=== PATIENT | male | born 1975 | race Caucasian/White ===

== ENCOUNTER → 2023-03-16 11:21 | Outpatient (CLI) | payer MEDICAID, SELFPAY ==
[2023-03-16 12:09] LABS: Basophils # 0.1 K/mm3 (0-0.2); Basophils % 0.7 % (0.1-2.0); Eosinophils # 0.3 K/mm3 (0.0-0.4); Eosinophils % 2.9 % (0.1-12.0); Hemoglobin 15.4 g/dL (14.1-18.0); Lymphocytes # 2.6 K/mm3 (0.7-4.5); Lymphocytes % 23.2 % (10-50); Mean Corpuscular HGB Conc 33.5 g/dL (31.8-35.4); Mean Corpuscular Hemoglobin 29.4 pg (27.0-31.2); Mean Corpuscular Volume 87.7 fl (80-94); Mean Platelet Volume 9.8 fl (7.4-10.4); Monocytes # 1.1 K/mm3 (0.1-1.0); Monocytes % 9.6 % (1.7-9.3); Neutrophils # 7.1 K/mm3 (1.8-7.8); Neutrophils % 63.5 % (37.0-80.0); Platelet Count 137 K/mm3 (142-424); Red Blood Count 5.24 M/mm3 (4.60-6.20); Red Cell Distribution Width 13.4 % (11.5-17.5); White Blood Count 11.2 K/mm3 (4.8-10.8)
[2023-03-16 12:16] LABS: Alanine Aminotransferase 29 U/L (12-78); Albumin Level 4.2 g/dl (3.5-5.0); Albumin/Globulin Ratio 1.6 (1.1-1.8); Alkaline Phosphatase 88 U/L (38-126); Anion Gap 14.7 mEq/L (5-15); Aspartate Amino Transferase 33 U/L (17-59); Bilirubin,Total 0.4 mg/dl (0.2-1.3); Blood Urea Nitrogen 11 mg/dl (9-20); Calcium 9.3 mg/dl (8.4-10.2); Carbon Dioxide 29 mmol/L (22.0-30.0); Chloride 102 mmol/L (98-107); Estimated Glomerular Filt Rate 79 ml/min (>60); GFR (African American) 96 ML/MIN (>60); Globulin 2.7 g/dL (1.3-3.2); Glucose 112 mg/dl (74-100); Potassium 4.7 mmoL/L (3.5-5.1); Sodium 141 mmol/L (136-145); Total Protein,Serum 6.9 g/dl (6.3-8.2)
[2023-03-17 11:55] LABS: HBsAg Screen Negative (Negative); HCV Ab Non Reactive (Non Reactive); Hep A Ab, IGM Negative (Negative); Hep B Core Ab, IgM Negative (Negative)
== END ==
PROVIDERS: PCP Family Medicine; Visit Provider Surgery
DX: K40.90 Unilateral inguinal hernia, without obstruction or gangrene, not specified as recurrent (principal)
CPT/HCPCS: 36415; 80053; 80074; 85025

== ENCOUNTER 2023-08-26 11:54 | Emergency (ER) | payer MEDICAID, SELFPAY ==
[2023-08-26 12:16] VITALS: BP 143/96; PULSE 106; RESP 20; TEMP 36.8; O2SAT 96; BMI 38.0
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
[2023-08-26 13:21] VITALS: BP 140/93; PULSE 90; RESP 16; TEMP 36.6; O2SAT 92
== END 2023-08-26 13:23 | disposition home or self-care (01) ==
PROVIDERS: Emergency Provider Student in an Organized Health Care Education/Training Program; PCP Family Medicine
DX: K40.90 Unilateral inguinal hernia, without obstruction or gangrene, not specified as recurrent (principal); M54.40 Lumbago with sciatica, unspecified side
CPT/HCPCS: 99283

== ENCOUNTER → 2023-09-01 09:00 | Outpatient (CLI) | payer MEDICAID, SELFPAY ==
--- NOTE | 2023-09-01 09:01 | CT_ITS ---
FINAL REPORT TECHNIQUE: Axial CT images of the abdomen and pelvis were obtained before and after the administration of IV contrast. This study was performed with techniques to keep radiation doses as low as reasonably achievable (ALARA). Individualized dose reduction techniques using automated exposure control or adjustment of mA and/or kV according to the patient's size were employed. CLINICAL HISTORY: LLQ pain COMPARISON: None FINDINGS: Abdomen: The lung bases are clear. The heart is normal in size. The liver has an unremarkable appearance, without evidence of mass or biliary duct dilatation. The gallbladder is collapsed with a probable stone, would recommend ultrasound confirmation.. The spleen is unremarkable. No adrenal masses present. The pancreas has an unremarkable appearance. The kidneys enhance normally, with a small left renal cyst.. The aorta is normal in caliber. There is no free fluid or adenopathy. No mass or abnormal fluid collection is seen. Pelvis: The appendix is unremarkable in appearance. The urinary bladder is unremarkable. There is a large left inguinal hernia containing fat and a nonobstructed loop of sigmoid colon with a small amount of adjacent inflammatory change. There is a right inguinal hernia with fat. There are multiple small bilateral inguinal nodes, likely reactive. There is no evidence of bowel obstruction. IMPRESSION: Large left inguinal hernia containing fat and a nonobstructed loop of sigmoid colon with a small amount of adjacent inflammatory change. There are multiple small bilateral inguinal nodes in the pelvis, likely reactive. The gallstone is somewhat collapsed with a questionable stone present, recommend ultrasound confirmation. Reviewed, Interpreted and Dictated by Otis Perera III, MD Transcribed by Melvi Devries Authenticated and [facility]
== END ==
PROVIDERS: PCP Family Medicine; Visit Provider Family Medicine
DX: R10.32 Left lower quadrant pain (principal); K46.9 Unspecified abdominal hernia without obstruction or gangrene
CPT/HCPCS: 74178; Q9967

== ENCOUNTER 2023-10-05 07:14 | Outpatient (CLI) | payer MEDICAID, SELFPAY ==
--- NOTE | 2023-10-05 07:19 | NM_ITS ---
APPROVED REPORT Exam: Nuclear Stress Test Indication: Abnormal EKG, HTN, Tobacco use Patient Location: Outpatient Stress Tech: Karol Meléndez [place] Tech:Shyann Salinas, ARRT, RT (R)(N) Ht: 5 ft 10 in Wt: 260 lbs HR: 67 bpm BP: 143/85 mmHg BSA: 2.33 m2 Rhythm: NSR TID: 1.19 BMI: 37.3 History: Abnormal EKG, HTN, Tobacco use Procedure: Patient received 0.4 mg of intravenous Lexiscan, resting heart rate 67 bpm, resting blood pressure 143/85 mmHg, with Lexiscan maximum heart rate achieved was 94 bpm which is % of the maximum predicted heart rate and blood pressure was 170/93 mmHg. With Lexiscan, patient denied any complaint of chest pain. Cardiac Stress and Resting SPECT Images: Cardiac Stress and Resting SPECT images were obtained using technetium 99m Myoview 32.4 mCi stress and 10.23 mCi at rest. Resting and stress imaging in supine and prone positions demonstrate no evidence of fixed or reversible perfusion defects. Gated imaging demonstrates normal global and regional LV systolic function. LVEF is calculated at 57%. Conclusion: No evidence of fixed or reversible perfusion defects. Gated imaging demonstrates normal global and regional LV systolic function. LVEF is calculated at 57%. Electronically signed by : Kita Zamorano MD 10/05/2023 11:16:31
[2023-10-05] MEDS: SODIUM CHLORIDE 0.9% 10ML SYR (RAD ONLY) 10 ML IV ×2 (08:51→08:52)
[2023-10-05] MEDS: REGADENOSON 0.4MG/5ML SYRINGE 0.400000000000000022 MG IV (08:52)
[2023-10-05] MEDS: ISOTOPE MYOVIEW (PER STUDY) 1 DOSE IV (08:52)
--- NOTE | 2023-10-05 08:55 | CA_ITS ---
APPROVED REPORT Exam: Pharmacologic Technologist: Karol Au, Ht: 5 ft 10 in Wt: 258 lbs BSA: 2.33 m2 HR: 61 bpm BP: 143/85 mmHg Rhythm: NSR Medical History Medications: Ciprofloxacin HCI,,,,, Stress Test Details Test: LEXISCAN Reason for pharmacologic stress test: physical limitation. HR Resting HR: 67 bpm Max Heart Rate (APMHR): 171 bpm Max HR Achieved: 94 bpm Target HR (85% APMHR): 145 bpm % of APMHR: 55 Recovery HR: 71 bpm BP Resting BP: 143.0/85.0 mmHg Max BP: 170.0/93.0 mmHg Recovery BP: 151.0/88.0 mmHg ECG Resting ECG: SR Stress ECG: No significant ST changes Arrhythmia: None Clinical Exercise duration: 04:00 min Highest Stage Achieved: Stress ECG Conclusion Symptoms: Dyspnea Arrhythmias/Ectopy: None ST-T Changes: No significant ST changes Conclusion: EKG unremarkable due to Lexiscan infusion. Myoview images are reported separately. Test Summary REST . . . . . . . Resting REST 01:25 . . 67 . 143/ 85 . . Stage 1 . . . . . . . Myoview Injected Stage 1 01:00 . . 90 . . . . Stage 2 01:00 . . 87 . 131/ 83 . . Stage 3 01:00 . . 79 . 163/ 99 . . Stage 4 01:00 . . 74 . 170/ 93 . Stop exercise at 04:00 RECOVERY 01:00 . . 74 . . . . RECOVERY 02:00 . . 74 . 147/ 96 . . RECOVERY 03:00 . . 78 . 147/ 96 . . RECOVERY 04:00 . . 73 . 159/ 96 . . RECOVERY 05:00 . . 76 . 151/ 88 . . Electronically signed by : Kita Zamorano MD 10/05/2023 10:36:13
== END 2023-10-05 23:59 ==
PROVIDERS: PCP Family Medicine; Visit Provider Nurse Practitioner Family
DX: Z01.810 Encounter for preprocedural cardiovascular examination (principal); R94.31 Abnormal electrocardiogram [ECG] [EKG]
CPT/HCPCS: 78452; 93017; 93018; A9502; J2785

== ENCOUNTER 2023-11-24 14:55 | Outpatient (CLI) | payer MEDICAID, SELFPAY ==
--- NOTE | 2023-11-24 14:57 | CA_ITS ---
APPROVED REPORT EXAM: Comprehensive 2D, Doppler, and color-flow Echocardiogram Composition Roll Maker And Cutter: Jody Greene RVT Ht: 5 ft 10 in Wt: 258lbs BSA: 2.33 BP: 174/96 mmHg Indications: PRE-OP,ABN EKG,SMOKER,EDEMA 2D Dimensions LA Volume 47.60 mL LA Volume Index 20.43 mL/m2 (M/F) 16-34 M-Mode Dimensions RVDd 3.60 cm (0.9-2.6) LA Diam 4.04 cm (1.9-4.0) LVDd 4.05 cm (3.5-5.7) LVDs 2.71 cm (3.5-5.7) IVSd 0.93 cm (0.6-1.1) PWd 0.49 cm (0.6-1.1) EF (Teich) 62.10% FS 33.10% EDV (Teich) 72.10 mL TAPSE 2.39 (<1.7) ESV (Teich) 27.30 mL LV Diastology E Decel Time 260 (160-240 msec) E/A Ratio 0.6 Aortic Valve DICKSON Index 1.81 cm2/m2 AoV Peak Victoriano. 117.0 (50-130 cm/s) AO Peak GR. 5.50 mmHg AO Mean GR. 3.20 (<5 mmHg) AO VTI 20.1 (18-25 cm) DICKSON (VTI) 4.31 (2.5-4.5 cm2) Mitral Valve MV E Max Victoriano. 59.0 (40-130 cm/s) MV A Velocity 97.0 (40-130 cm/s) E/A Ratio 0.61 MV PHT 76.0 ms Pulmonary Valve PV Peak Velocity 102.0 (50-150 cm/s) Left Ventricle The left ventricle is normal size. The left ventricular systolic function is normal. The left ventricular ejection fraction is within the normal range. The left ventricular systolic function is normal. The left ventricular ejection fraction is within the normal range. There is increased LV wall thickness. There is normal LV segmental wall motion. Transmitral Doppler flow pattern suggests impaired LV relaxation. LVEF is 60%. Right Ventricle The right ventricle is normal size. The right ventricular systolic function is normal. Atria The left atrium size is normal. The right atrium size is normal. There is no Doppler evidence of interatrial shunt. Aortic Valve The aortic valve opens well. There is no aortic valvular stenosis. Trace aortic regurgitation. Mitral Valve The mitral valve is normal in structure. No evidence of mitral valve stenosis. Trace mitral regurgitation. Tricuspid Valve The tricuspid valve leaflets are thin and pliable. Trace tricuspid regurgitation. There is insufficient TR jet to estimate RVSP. Pulmonic Valve The pulmonary valve is normal in structure. Trace pulmonic regurgitation. Great Vessels The aortic root is normal in size. The ascending aorta is normal in size. IVC is normal in size and collapses >50% with inspiration. Pericardium There is no pericardial effusion. Other Information Study Quality: Fair Conclusion Normal biventricular systolic function. No significant valvular stenosis or regurgitation. Electronically signed by : Kita Zamorano MD 11/28/2023 23:18:23
== END 2023-11-24 23:59 ==
LOC: RT 14:57
PROVIDERS: PCP Family Medicine; Visit Provider Nurse Practitioner Family
DX: Z01.810 Encounter for preprocedural cardiovascular examination (principal); R94.31 Abnormal electrocardiogram [ECG] [EKG]
CPT/HCPCS: 93306

== ENCOUNTER 2025-05-11 08:50 | Outpatient (CLI) | payer MEDICAID, SELFPAY ==
--- OUTSIDE RECORDS SUMMARY | 2016-11-10 09:35 | XMS_ITS | Continuity of Care Document ---
Author Organization [facility] Address [address] [place] [address] Phone Care Team Providers Care Agriculture Intern Name Role Phone Keyla CAMPOS, Lew Unavailable Unavailable Allergies, Adverse Reactions, Alerts Substance Reaction Status Criticality No Known Allergies Active No Inform ation Medications Medication Instructions Dosage Effective Dates (start - stop) Status Comments No Drug Therapy Prescribed Procedures Procedure Date Office consultation, moderate 7 INJ PARAVERT F JNT L/S 1 LEV INJ PARAVERT F JNT L/S 2 LEV INJ PARAVERT F JNT L/S 3 LEV Methylprednisolone 40 MG inj Office/outpatient visit,est, mod 2016 MRI Lumbar Spine wo Contrast Office/outpatient visit,est, mod 2016 Advance Directives Directive Yes / No Effective Date File Name No Information Encounters Encounter Description Practice Location Reason(s) For Visit Diagnoses Date Provider Providers Copied on Encounter [facility], [facility] [place], [place], [facility], tel:[phone] No Information 7 Keyla Hackett. [address] [place], [address], [place]. tel:[phone] Referring Provider: Cas Silva, [address] [place] [address], [address]. tel:[phone] Office consultation , moderate [facility] [place], [facility] [place], [place], [facility], tel:[phone] [facility] Spondylosis w/o myelopathy of lumbar regionSpondylo sis w/o myelopathy of sacral region Keyla Hackett. [address] [place], [address], . tel:[phone] Referring Provider: Cas Silva, [address] [place] [address], [facility]. tel:[phone] [facility], [facility], tel:[phone] [address] [place] [address] No Information Ricardo Cardozo. [address] [place] [address], [facility], . tel:[phone] [facility], [address] [place] [address], [facility], tel:[phone] [address] [place] [address] No Information Ricardo Cardozo. [address] [place] [address], [facility], . tel:[phone] Referring Provider: Cas Silva, [address] [place] [address], [facility]. tel:[phone] Office/outpa tient visit,[address], [facility], tel:[phone] [address] [place] [address] No Information Ricardo Cardozo. [address] [place] [address], [facility], . tel:[phone] Family History Family Member Type Diagnosis Age At Onset Problem (finding) Family history of Arthr itis Problem (finding) Family history of Cance r, unknown Payers Payer name Insurance type Covered democrat ID Shivam chavez(s) [employer] - [id number] Social History Type Description Quantity Date Captured Comments Alcohol Use Details Unknown Caffeine Use Details Unknown Tobacco Use Status Smoking Status No Information Sex Male Chief Complaint And Reason For Visit No Information Reason For Referral Reason For Referral No Information Plan Of Treatment Date Type Action Status Future Order: Radiology Order MR I Lumbar Spine WO Contrast ([id number]), Collected on: , Sent on: Sent History Of Present Illness Encounter Date Complaint History Of Prese nt Illness No Information Functional Status Date Functional Assessmen t No Information Medications Administered Medication Instructions Dosage Effective Dates (start - stop) Status Comments No Drug Therapy Prescribed Instructions Date Instruction Additional Infor mation No Information Assessments Type Assessment Date No Information Patient Care Teams Name Effective Dates (start - stop) Status Members No Information
[2025-05-11 07:50] VITALS: BMI 34.7
--- OUTSIDE RECORDS SUMMARY | 2025-05-11 08:59 | XMS_ITS | Clinical Summary ---
Author Organization [facility] Address [address] [place] [address] Phone Care Team Providers Care Dependency Case Manager Name Role Phone Candelario Castillo MD [phone] Conditions or Problems No information available. Medications No information available. Medications Administered No information available. Allergies, Adverse Reactions, Alerts No information available. Results No information available. Plan of Care No information available. Procedures No information available. Vital Signs No information available. Immunizations No information available. Advance Directives No information available.
--- OUTSIDE RECORDS SUMMARY | 2025-05-11 09:00 | XMS_ITS | Patient Health Record ---
Author Organization [facility] Address [address] [place] [address] Care Team Providers Care Nuclear Equipment Research Engineer Name Role Phone Delia Kirkpatrick Primary Care Provider [phone] Allergies No Known Allergies Reason For Referral No Information Medications Medication SIG (Take, Route, Fr equency, Duration) Notes Start Date End Date Status Ibuprofen 800 MG 1 tablet with food o r milk as needed Orally every 8 hrs Active Claritin 10 MG 1 tablet Orally Once a day Active Melatonin 10 MG 1 tablet at bedtime as needed Orally Once a day Active Social History Tobacco Use: Social History Observation Description Date Details (start date - stop date) Current Smoker NA - NA Tobacco Use/Smoking Question Answer Notes Are you a current smoker How often do you smoke cigarettes? every day How many cigarettes a day do you smoke? 31 or mo re Alcohol Screen (Audit-C) Question Answer Notes Did you have a drink contain ing alcohol in the past year? Yes How often did you have a dri nk containing alcohol in the past year? 4 or more times a week (4 points) How many drinks did you have on a typical day when you were drinking in the past year? 10 or more drinks (4 points) How often did you have 6 or more drinks on one occasion in the past year? Daily or almost daily (4 points) Points 12 Interpretation Positive Section Notes: Started drinking age 12 Problems Problem Type SNOMED Code ICD Code Onset Dates Problem Status W/U Status Risk Notes Problem Alcohol dependence (00804711) Uncomplicated alcohol dependence (F10.20) Active confirmed Problem Opioid dependence (62516942) Uncomplicated opioid dependence (F11.20) Active confirmed Plan Of Treatment No Information Insurance Providers Payer Name Payer Address Payer Phone Subscriber Number Group Number Insured Name Patient Relationship to Insured Coverage Start Date Coverage End Date [employer] [facility] [address] [address] [place] [phone] [id number] Shawn Quintero Self - patient is the insured 3 Medical (General) History Medical History History ICD Code Traumatic brain injury (disorder) S06.9X 0A Opioid use disorder F11.99 Alcohol use Z72.89 Surgical History Surgery Date(Month/Year) skin graft Left shoulder 2006 back surgery 2014 Brain surgery 2006 Hospitalization History Reason Date(Month/Year) surgery
[2025-05-11 09:41] LABS: Chloride 103 mmol/L (98-107); Sodium 138 mmol/L (136-145)
[2025-05-11 09:42] LABS: Potassium 3.8 mmoL/L (3.5-5.1)
[2025-05-11 09:44] LABS: Blood Urea Nitrogen 9 mg/dl (9-20); Creatinine Clearance Estimated 136 mL/min (50-200); Creatinine,Serum 1.00 mg/dl (0.66-1.25); Estimated Glomerular Filt Rate 79 ml/min (>60); GFR (African American) 95 ML/MIN (>60)
[2025-05-11 09:45] LABS: Anion Gap 8.8 mEq/L (5-15); Calcium 8.7 mg/dl (8.4-10.2); Carbon Dioxide 30 mmol/L (22.0-30.0); Glucose 120 mg/dl (74-100)
[2025-05-11 09:48] LABS: Hematocrit 43.5 % (42.0-52.0); Hemoglobin 14.9 g/dL (14.1-18.0); Immature Granulocytes % 0.2 %; Mean Corpuscular HGB Conc 34.3 g/dL (31.8-35.4); Mean Corpuscular Hemoglobin 30.7 pg (27.0-31.2); Mean Corpuscular Volume 89.5 fl (80-94); Nucleated Red Blood Cells % 0 %; Platelet Count 170 K/mm3 (142-424); Red Blood Count 4.86 M/mm3 (4.60-6.20); Red Cell Distribution Width-SD 40.4 fL; White Blood Count 8.5 K/mm3 (4.8-10.8)
== END 2025-05-11 23:59 | disposition home or self-care (01) ==
LOC: PREOP 08:51
PROVIDERS: PCP Family Medicine; Visit Provider Surgery
DX: Z01.812 Encounter for preprocedural laboratory examination (principal)
CPT/HCPCS: 80048; 85025

== ENCOUNTER 2025-05-21 07:51 | Day surgery (SDC) | payer MEDICAID, SELFPAY ==
[2025-05-11 09:53] VITALS: BMI 34.7
[2025-05-21] VITALS (10 sets, daily range): BP systolic 144–165; BP diastolic 64–99; PULSE 77–91; RESP 18; TEMP 36.1–38; O2SAT 94–100
--- NOTE | 2025-05-21 08:40 | EXP.ANES.CKL ---
[facility] Disclaimer: The information contained in this section may have been updated after the patient was seen, as this information can be updated by other users. Medical History HTN (hypertension) Chronic low back pain with sciatica Inguinal hernia Surgical History History of surgery on arm Family History Other Cancer Coronary artery disease Diabetes Family history of osteoporosis Social History Smoking Status: Current every day smoker tobacco type: cigarettes packs per day: 1 alcohol intake: never substance use type: unknown current occupational status: unemployed Travel in the last 8 weeks?: None [facility] Anesthesia Checklist Patient Identification Patient Identification: Arm Band and Verbal (Name & ) Structural Data Admitted From: Home Planned Operative Procedure/s: open inginual hernia repair Consent for Planned Operative Procedure(s) Verified: Yes Verified Documents: Surgical Consent and History and Physical NPO Status Verified Time NPO: 00:00 Additional verifications Anesthesia Reactions: No Hx Blood Transfusions: No Blood Transfusion Reaction: No Airway Assessment Mallampati Score:: Class II Dentition: Poor Dentition Neurological Assessment Level of Consciousness: Awake, Alert and Appropriate Hx Seizures: No Numbness or tingling in extremities: No Anesthesia Plan Anesthesia Risk discussed: Yes Anesthesia Plan: Verified ASA Class: II Anesthesia Type: General
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
[2025-05-21] MEDS: LIDOCAINE 1% 20ML MDV 20 ML (09:47)
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
--- NOTE | 2025-05-21 12:04 | EXP.ANES.I ---
[facility] Anesthesia Record Part I Anesthesia Record I Intake, IV Amount: 1,200 Hydration: Adequate Estimated blood loss (mL): 10 Urine output (mL): 200 Blood Pressure: 155/94 SaO2: 100 Pulse Rate: 91 Airway Patency: Patent Respiratory Rate: 18 Temperature: 99.5 F Patient is:: Awake, Mask O2 and Stable Stable to PACU at:: 12:10
[2025-05-21 14:55] LABS: Microscopic,Cath URINE MICROSCOPIC (MICROSCOPIC)
[2025-05-21 18:46] LABS: Appearance,Urine/Cath CLEAR (Clear); Bilirubin,Cath Negative (Negative); Blood, Urine/Cath Negative (Negative); Color,Urine/Cath YELLOW (Yellow); Glucose,Urine/Cath (UA) Negative (Negative); Ketones,Urine/Cath Negative (Negative); Leukocyte Esterase,Cath Negative (Negative); Nitrate,Cath Negative (Negative); PH,Urine/Cath 7.0 (5.0-8.5); Protein,Urine/Cath TRACE (Negative); Specific Gravity, Urine/Cath 1.020 (1.005-1.030); Urobilinogen,Cath 0.2 EU/dl (0.2)
[2025-05-21 20:36] LABS: Mucus,Urine/Cath 1+ /lpf; RBC,Urine/Cath Occasional # /hpf (0-3); Sperm,Urine/Cath 1+ /lpf
--- NOTE | 2025-05-22 10:56 | EXP.ANES.II ---
[facility] Anesthesia Record Part II Anesthesia Record Part II Discharge Time: 13:00 Destination: Surgical Day Care (OP Surgery) PACU nurse assessment reviewed?: Yes Patient Condition:: Good Anesthesia Complications:: None Swallowing reflex intact?: Yes Airway Patency: Patent Cyanosis?: No Blood Pressure: 150/64 SaO2: 95 Respiratory Rate: 18 Pulse Rate: 80 Temperature: 97.3 F Mental Status: Alert & Oriented Pain level:: 0 Nausea and/or vomitting:: None Intake, IV Amount: 0 Hydration: Adequate
[2025-05-22 10:57] VITALS: BP 150/64; PULSE 80; RESP 18; TEMP 36.3; O2SAT 95
== END 2025-05-21 13:00 | disposition home or self-care (01) ==
PROVIDERS: PCP Family Medicine; Visit Provider Surgery
PROC: (CPT 49505; principal; 2025-05-21 09:25)
DX: K40.90 Unilateral inguinal hernia, without obstruction or gangrene, not specified as recurrent (principal); I10 Essential (primary) hypertension; M54.40 Lumbago with sciatica, unspecified side; F17.210 Nicotine dependence, cigarettes, uncomplicated
CPT/HCPCS: 49505; 81001; C1781; J0690; J1100; J1200; J2003; J2250; J2371; J2405; J2704; J2795; J3010; J7120